=== PATIENT | female | born 1970 | race Two or more races ===

== ENCOUNTER 2024-05-10 17:12 | Emergency (ER) | payer MEDICAID, SELFPAY ==
[2024-05-10 17:37] VITALS: BP 188/115; BP 196/102; PULSE 108; RESP 22; TEMP 37.3; O2SAT 93; BMI 48.6
--- NOTE | 2024-05-10 18:06 | EKG_ITS ---
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
--- NOTE | 2024-05-10 18:06 | XR_ITS ---
Examination: PA lateral chest 2 views TECHNIQUE: Upright AP lateral chest 2 views Exam date and time:: May 10, 2024 1857 hours INDICATIONS: Coughing beginning 3 days ago. FINDINGS: Large retrocardiac gastric hernia Mild prominence cardiac contour Suspicious for early left base retrocardiac pneumonia The osseous structures are intact IMPRESSION: Suspicious for early left base retrocardiac pneumonia
--- NOTE | 2024-05-10 18:07 | PD.EDRME ---
Rapid Medical Screening Exam E Arrival date/time: 05/10/24 17:12 53-year-old female reports with complaint of shortness of breath chest pain fevers chills body aches dizziness and elevated blood pressure reading for several days Chief Complaint: Flu Like Symptoms Time Seen by Provider: 05/10/24 17:39 Vital signs: Vital Signs Temperature 99.2 F 05/10/24 17:37 Pulse Rate 108 H 05/10/24 17:37 Respiratory Rate 22 H 05/10/24 17:37 Blood Pressure 188/115 H 05/10/24 17:37 Pulse Oximetry (%) 93 L 05/10/24 17:37 Oxygen Delivery Method Room Air 05/10/24 17:37
[2024-05-10 19:10] LABS: Basophils % (Auto) 0 % (0-2.5); Eosinophils % (Auto) 0 % (0-10); Hematocrit 29.5 % (36.0-46.0); Hemoglobin 9.3 g/dL (12.0-16.0); Immature Granulocytes % (Auto) 0 % (0-0); Immature Granulocytes Auto 0.03 Thou/mm3 (0.00-0.00); Lymphocytes # (Auto) 0.7 Thou/mm3 (1.0-4.8); Lymphocytes % (Auto) 8 % (10-50); Mean Corpuscular HGB Conc 31.5 g/dl (31.0-37.0); Mean Corpuscular Hemoglobin 24.7 pg (25.0-35.0); Mean Corpuscular Volume 78 fL (80-100); Monocytes # (Auto) 0.4 Thou/mm3 (0.0-0.8); Monocytes % (Auto) 4 % (0-12); Neutrophils # (Auto) 7.6 Thou/mm3 (1.8-7.7); Neutrophils % (Auto) 87 % (37-80); Nucleated Red Blood Cell % 0 /100 WBC (0); Platelet Count 335 Thou/mm3 (140-440); RDW Standard Deviation 41.7 fL (36.4-46.3); Red Blood Count 3.77 Miln/mm3 (4.00-5.20); White Blood Count 8.8 Thou/mm3 (3.6-11.0)
[2024-05-10 19:26] LABS: Alanine Aminotransferase 14 U/L (10-49); Albumin, Serum 4.2 gm/dL (3.5-5.0); Albumin/Globulin Ratio 1.4 (1.2-2.2); Alkaline Phosphatase 143 U/L (46-116); Anion Gap 8 (7-16); Aspartate Amino Transferase 24 U/L (0-34); BUN/Creatinine Ratio 17 Ratio (12-20); Bilirubin,Total 0.6 mg/dL (0.3-1.2); Blood Urea Nitrogen 10 mg/dL (9-23); Calcium 9.4 mg/dL (8.3-10.6); Calcium (Corrected) 9.4 mg/dL (8.5-10.1); Carbon Dioxide 24.8 mMol/L (20.0-31.0); Chloride 101 mMol/L (98-107); Creatinine (Component) 0.6 mg/dL (0.6-1.3); Estimated Creatinine Clearance 159.9 mL/min (>60); Globulin 3.1 gm/dL (2.3-3.5); Glucose 101 mg/dL (74-106); Osmolality,Calculated 267 (275-295); Potassium 3.6 mMol/L (3.4-5.1); Sodium 134 mMol/L (136-145); Total Protein 7.3 gm/dL (5.7-8.2); Troponin I < 0.020 ng/mL (0.0-0.045); eGFR > 60 See Note
[2024-05-10 20:28] VITALS: BP 176/98; PULSE 92; RESP 20; TEMP 36.9; O2SAT 95
--- NOTE | 2024-05-10 20:41 | PD.EDADULT ---
ED General RME/HPI General Chief complaint: Flu Like Symptoms Stated complaint: FEVER, COUGH, MUNSON, DIZZINESS Time Seen by Provider: 05/10/24 17:39 Arrival date/time: 05/10/24 17:12 CC: Body aches malaise headache fever dizziness HPI onset 2 days ago patient was referred by primary care provider for workup after the patient had her blood hypertension medications refilled. The patient is all noted to be morbidly obese. Patient is awake alert oriented states no other family members are ill with similar medicines has not taken any medicines at home for the symptoms. Patient is awake alert but ill-appearing. RME / HPI RME / HPI narrative: 05/10/24 17:12 53-year-old female reports with complaint of shortness of breath chest pain fevers chills body aches dizziness and elevated blood pressure reading for several days Related Data Previous Rx's ?Medication ?Instructions ?Recorded meloxicam 7.5 mg tablet 7.5 mg PO QDAY #10 tabs 05/10/24 oseltamivir 75 mg capsule (Tamiflu) 75 mg PO BID 5 days #10 caps 05/10/24 Allergies Allergy/AdvReac Type Severity Reaction Status Date / Time No Known Allergies Allergy Unverified 01/07/24 09:26 Review of Systems Review of Systems Narrative Review of Systems: GEN: + fever, +chills, no weight loss EYES: No discharge, no visual changes, no pain HEENT: No ear pain, no congestion, no sore throat PULM: No shortness of breath, no cough, no congestion CV: No chest pain, no dyspnea on exertion, no palpitations GI: No nausea, no vomiting, no diarrhea, no pain, no constipation : No frequency, no urgency, no dysuria MUSC/SKEL: No joint pain, no back pain SKIN: No rash PSYCH: No hallucinations, no depression HEME/LYMPH: No easy bleeding or bruising tendencies NEURO: + weakness, no headache, +body aches Past Medical History Past Medical History CARDIAC: Negative Cardiac Disorders or Congestive Heart Failure RESPIRATORY: Negative Chronic Obstructive Pulmonary Disease (COPD) GENITOURINARY: Negative Renal Disease MUSCULOSKELETAL: Negative Musculoskeletal Disorders ENDOCRINE: Negative Diabetes Mellitus Type 1 or Diabetes Mellitus Type 2 HEMATOLOGIC: Positive Anemia Family History FAMILY HISTORY: Negative Family Cardiac Disorders Social History SMOKING STATUS: Never smoker ED Exam Narrative Physical exam: [General: Morbidly obese not in any acute distress Head normocephalic HEENT: Within acceptable limits Neck is supple nontender Chest equal chest rise nontender to palpation Respiratory: Clear to auscultation no wheezes crackles or rubs CV: Rate rhythm is regular, tachycardic, no murmurs rubs or clicks Abdomen is grossly distended secondary to body habitus soft nontender no masses positive bowel sounds all 4 quadrants Back: No CVA tenderness no spinous process tenderness from cervical spine thoracic and lumbar spine Skin: Intact no petechiae rash induration ulceration or crepitus Extremities: Moving all extremity against resistance cap refill less than 2 seconds neurosensory intact Neuro: Awake alert oriented x3 Glascow coma 15 no focal deficits] Course Quality Measures none Orders Category Date Time Status Bedside COVID-19 Antigen Test NOW Care 05/10/24 18:06 Completed Bedside Influenza A&B Antigen Test NOW Care 05/10/24 18:06 Completed EKG (ED ONLY) *Do not use* NOW Care 05/10/24 18:07 Completed EKG (ED Only) Stat Exams 05/10/24 18:06 Draft XR chest 2V Stat Exams 05/10/24 18:06 Completed CBC Stat Lab 05/10/24 18:36 Completed CMP [Comprehensive Metabolic Panel] Stat Lab 05/10/24 18:36 Completed Troponin I Stat Lab 05/10/24 18:36 Completed Vital Signs Vital signs: Vital Signs Temperature 99.2 F 05/10/24 17:37 Pulse Rate 108 H 05/10/24 17:37 Respiratory Rate 22 H 05/10/24 17:37 Blood Pressure 188/115 H 05/10/24 17:37 Pulse Oximetry (%) 93 L 05/10/24 17:37 Oxygen Delivery Method Room Air 05/10/24 17:37 [facility] Patient data External records reviewed:: [facility] previous records Clinical information provided by:: patient and family Social determinants that could affect healthcare access:: none Patient has the following chronic illnesses:: Morbid obesity hypertension How is presenting disease/condition affected by chronic disease/condition?: uneffected by Evaluation data The following diagnostics were reviewed and interpreted by me:: lab results and radiology exam(s) Lab and/or radiology exams considered but not ordered:: EKG performed at 1811 shows a ventricular rate of 94 DC interval 154 QRS of 75 QTc of 352 this is sinus rhythm. CBC shows no leukocytosis there is anemia that is markedly improved from the last labs. No thrombocytopenia CMP shows no acute electrolyte imbalances renal impairment transaminitis or T. bili elevation Troponin is negative Chest x-ray shows possible early left base retrocardiac infiltrate Patient is influenza A positive Interpretation Summary: Influenza A positive the patient has no acute respiratory distress, but typical presentation for influenza A have a low index of suspicion that there is an overlying bacterial infection. Patient will be started on meloxicam and Tamiflu. Follow-up with a primary care provider Medications Medications considered but not ordered:: None Medication administrations:: None Consultations Consultation(s) initiated? (list below): No Diagnosis Differential Diagnosis ED Complaint MDM: Pneumonia influenza COVID Most likely diagnosis given after review of the tests above:: Influenza A Admission Indicated Admission indicated?: not indicated Explain why admission is indicated or not indicated:: Stable for discharge Admission Request Was there a request for admission?: No Disposition Plan Disposition Plan: Discharge Discharge Attestation Discharge Attestation: The patient and all family members were given an opportunity to ask questions and understood the discharge instructions. Discharge instructions specifically effects, indications for sooner follow up or return to the emergency department, and the expected course of current diagnosis. Patient condition: Stable Medical Decision Making Differential Diagnosis Differential Diagnosis: Pneumonia influenza COVID Lab Data 05/10/24 18:36 05/10/24 18:36 Labs: Lab Results 05/10/24 Range/Units 18:36 WBC 8.8 (3.6-11.0) Thou/mm3 RBC 3.77 L (4.00-5.20) Miln/mm3 Hgb 9.3 L (12.0-16.0) g/dL Hct 29.5 L (36.0-46.0) % MCV 78 L (80-100) fL MCH 24.7 L (25.0-35.0) pg MCHC 31.5 (31.0-37.0) g/dl RDW Std Deviation 41.7 (36.4-46.3) fL Plt Count 335 (140-440) Thou/mm3 Neut % (Auto) 87 H (37-80) % Lymph % (Auto) 8 L (10-50) % [place] % (Auto) 4 (0-12) % Eos % (Auto) 0 (0-10) % Baso % (Auto) 0 (0-2.5) % Neut # (Auto) 7.6 (1.8-7.7) Thou/mm3 Lymph # (Auto) 0.7 L (1.0-4.8) Thou/mm3 Charlotte # (Auto) 0.4 (0.0-0.8) Thou/mm3 Eos # (Auto) 0.0 (0.0-0.5) Thou/mm3 Baso # (Auto) 0.0 (0.0-0.2) Thou/mm3 Immature Gran # (Auto) 0.03 H (0.00-0.00) Thou/mm3 Absolute Nucleated RBC 0.00 (0.00-0.00) Thou/mm3 Immature Gran % 0 (0-0) % Nucleated RBC % 0 (0) /100 WBC Sodium 134 L (136-145) mMol/L Potassium 3.6 (3.4-5.1) mMol/L Chloride 101 (98-107) mMol/L Carbon Dioxide 24.8 (20.0-31.0) mMol/L Anion Gap 8 (7-16) BUN 10 (9-23) mg/dL Creatinine 0.6 (0.6-1.3) mg/dL Estim Creat Clear Calc 159.9 (>60) mL/min eGFR > 60 (60 - ) See Note BUN/Creatinine Ratio 17 (12-20) Ratio Glucose 101 (74-106) mg/dL Calculated Osmolality 267 L (275-295) Calcium 9.4 (8.3-10.6) mg/dL Corrected Calcium 9.4 (8.5-10.1) mg/dL Total Bilirubin 0.6 (0.3-1.2) mg/dL AST 24 (0-34) U/L ALT 14 (10-49) U/L Alkaline Phosphatase 143 H (46-116) U/L Troponin I < 0.020 (0.0-0.045) ng/mL Total Protein 7.3 (5.7-8.2) gm/dL Albumin 4.2 (3.5-5.0) gm/dL Globulin 3.1 (2.3-3.5) gm/dL Albumin/Globulin Ratio 1.4 (1.2-2.2) Discharge Plan Plan Patient Disposition: HOME (Self Care) Patient condition on transfer: Stable Prescriptions/Referrals Prescriptions/Med Rec: New meloxicam 7.5 mg tablet 7.5 mg PO QDAY Qty: 10 0RF oseltamivir [Tamiflu] 75 mg capsule 75 mg PO BID 5 Days Qty: 10 0RF Referrals: Ellie Hankins PA-C [Primary Care Provider] - In 1 week Problem List Clinical Impression: Influenza A Patient/Caregiver Discharge Instructions Education Materials: ED Influenza (Adult) Additional Instructions: You have influenza A, take the medications as prescribed rest drink plenty of fluids if there is worsening of symptoms in the next 2 to 3 days return the emergency room for reevaluation. Continue take Tylenol along with the medications prescribed. Print Language: Faroese Stand Alone Forms: Malathi Award Info., Work/School Release, Patient Portal Info Letter LIDIA/MARCOS Supervising Physician LIDIA/MARCOS Supervising Physician: Zia Santana ENP
== END 2024-05-10 20:58 | disposition home or self-care (01) ==
PROVIDERS: Physician Assistant; Emergency Provider Emergency Medicine; PCP Specialist
DX: J10.1 Influenza due to other identified influenza virus with other respiratory manifestations (principal); R94.31 Abnormal electrocardiogram [ECG] [EKG]
CPT/HCPCS: 36415; 71046; 80053; 84484; 85025; 87400; 87811; 93005; 99283